=== PATIENT | male | born 1975 | race Caucasian/White ===

== ENCOUNTER 2019-04-09 13:47 | Inpatient (IN) ==
--- NOTE | 2019-04-09 14:44 | PROVIDER DOCUMENTATION ---
HPI-Abdominal Pain/GI Problem - General Chief Complaint: Vomiting Blood Stated Complaint: VOMITING BLOOD Time Seen by Provider: 04/09/19 14:18 Source: patient Allergies/Adverse Reactions: Patient Allergies Allergy/AdvReac Type Severity Reaction Status Date / Time No Known Allergies Allergy Verified 02/07/19 08:21 Home Medications: Home Medication List Medication Instructions Recorded Confirmed Last Taken Type NK [No Home Medications] 04/09/19 04/09/19 Unknown History - History of Present Illness-ABD Nature of Presenting Problems: 43 yr old M, hx of Hep C, cirrhosis, esophageal banding, presents with a three day hx of hematemesis and melena. Pt states these symptoms have occurred before, and each time, he has needed a blood transfusion; most recently about 2-3 wks ago. Pt states he also has scrotal swelling, which he notices occurs whenever his other symptoms occur; he has generalized abdominal pain with some focal tenderness suprapubically. He notes that the dark matter, he noticed in his vomiting and stool started to clear up about two days ago; however, because of what happened the last time, he decided to come in for evaluation. Abdominal Pain Onset Location: reports: suprapubic, generalized abdomen Pain Radiation: reports: no radiation Quality of Pain: reports: cramping, pressure Severity in ED: reports: moderate Onset/Duration: reports: 5 days ago Timing: reports: improving Activities at Onset: reports: none Exposure to sick contacts?: No Modifying Factors: improves with: nothing Associated Symptoms: reports: nausea, vomiting Last BM: 24 hours ago Dark Stools Present?: reports: black Emesis Description: reports: blood-streaked Bruising or Bleeding Gums?: No Similar Symptoms Previously?: Yes Review of Systems - Adult - REVIEW OF SYSTEMS - ADULT Constitutional: reports: no symptoms reported Eyes: reports: no symptoms reported Ears, Nose, Mouth & Throat: reports: no symptoms reported Cardiovascular: reports: no symptoms reported Respiratory: reports: no symptoms reported Gastrointestinal: reports: see HPI Genitourinary: reports: see HPI Musculoskeletal: reports: no symptoms reported Integumentary: reports: no symptoms reported Neurological: reports: no symptoms reported Psychiatric: reports: no symptoms reported Past History - Adult - PAST MEDICAL HISTORY-ADULT Review of Records: reports: Old Records Reviewed, Nursing Assessment Review Major Childhood Illnesses: reports: denies history Cardiovascular: reports: denies history Respiratory: reports: denies history Gastrointestinal: reports: GI bleed, hepatitis, liver disease Musculoskeletal: reports: denies history - PRIOR SURGERIES/PROCEDURES Surgical/Procedure History: denies: recent surgery - FAMILY HISTORY Family History: reviewed, not pertinent - SOCIAL HISTORY Smoking: cigarettes Provider spent 3-5 mins advising pt. on dangers of tobacco.: Discussed manners to quit use, and f/u contacts for add'l counseling. Physical Exam-General - PHYSICAL EXAM-ADULT Initial Vital Signs Reviewed: Yes - CONSTITUTIONAL General Appearance: alert, no apparent distress - EYES Eyes: PERRL/EOMI - HEAD, EARS, NOSE, MOUTH & THROAT HENMT: normocephalic/atraumatic, moist mucous membranes - RESPIRATORY Respiratory: chest non-tender, lungs clear, normal breath sounds - CARDIOVASCULAR Cardiovascular: regular rate, rhythm - GASTROINTESTINAL (ABDOMEN) Abdominal Exam: tenderness (suprapubic) - MUSCULOSKELETAL Extremity: no pedal edema - SKIN Integumentary: warm/dry, pallor - NEUROLOGIC Neurologic: no motor/sensory deficits - PSYCHIATRIC Psych/Mental Status: normal mood/affect, oriented x 3 Progress - PLAN OF CARE/RESULTS Progress/Plan/Lab Results: Vital Signs - 8 hr 04/09/19 14:00 Temperature 98.0 F Pulse Rate 101 H Respiratory Rate 20 Blood Pressure 123/69 O2 Sat by Pulse Oximetry 100 Orders Category Date Time Status US SCROTUM [US] Stat Exams 04/09/19 14:39 Ordered CBC WITH ELECTRONIC DIFF [HEME] Stat Lab 04/09/19 14:30 Results COMPREHENSIVE METABOLIC PANEL [CHEM] Stat Lab 04/09/19 14:30 Received OCCULT BLOOD SCREENING [STOOL] Stat Lab 04/09/19 14:37 Ordered URINALYSIS W/POSS RFLX CULT [URINALYSIS] Stat Lab 04/09/19 14:18 Uncollected Result Diagrams: 04/09/19 14:30 04/09/19 14:30 - REASSESSMENT Reassessment #1 Time Reassessed: 14:55 (H/H 4.8, 17.7, an acute drop from his last recorded H/H in February. Spoke with hospitalist; pt will be accepted for further management.) - CONSULTS/PCP/HOSPITALIST Notification #1 *Consult/PCP/Hospitalist*: Tamara for Dr. Rondon Time Discussed: 14:55 Consult Disposition: Admit Departure - Departure Date of Disposition Decision: 04/09/19 Time of Disposition Decision: 15:02 DIAGNOSIS: Anemia Qualifiers: Anemia type: other cause Other causes of anemia: acute posthemorrhagic Qualified Code(s): D62 - Acute posthemorrhagic anemia Disposition: ADMITTED INPATIENT 09 Certified Medical Emergency: Emergent Condition: Fair Referrals and Follow-Ups: None,PCP [Primary Care Provider] - Discharge Education: Steps to Quit Smoking, [id number] - Critical Care Note This patient required my direct & personal management of CC.: Yes Total Time (mins): 45 Critical Care Statement: This patient required my direct personal management to treat or rule out processes, the absence of which, could potentiallly result in sudden, clinically significant life or limb threatening deterioration. Attestation - Physician/ MORGAN Attestation Patient care was provided by Advanced Practice Provider:: No The physician spent face to face time with patient:: Yes Advanced Practice Provider documentation review:: Supervising physician onsite and consulted in the evaluation and care of this patient. The physician did have a face to face encounter with the patient.
[2019-04-09 14:51] LABS: BASO# 0.01 X1000 (0.0-0.2); BASO% 0.2 % (0.0-0.8); EOS# 0.08 X1000 (0.0-0.7); EOS% 1.8 % (0.0-10.0); HEMATOCRIT 17.7 % (42.0-52.0); LYMPH# 1.63 X1000 (1.2-3.4); LYMPH% 36.1 % (20.5-51.1); MCH 22.7 PG (27-31); MCHC 27.1 g/dL (33-37); MCV 83.9 FL (81-99); MONO# 0.52 X1000 (0.11-0.59); MONO% 11.5 % (1.7-9.3); MPV 10.8 FL (7.4-10.4); NEUT# 2.27 X1000 (1.4-6.5); NEUT% 50.4 % (42.2-75.2); PLT 100 X1000 (130-400); RBC 2.11 XMIL (4.7-6.1); RDW 16.9 % (11.5-14.5); WBC 4.51 X1000 (4.8-10.8)
[2019-04-09 14:52] LABS: HEMOGLOBIN 4.8 g/dL (14.0-18.0)
[2019-04-09] MEDS ORDERED: NS 500 ML IV ONE (14:56)
[2019-04-09 15:00] LABS: AGAP 10; ALB/GLOB RATIO 1.4; ALBUMIN 3.2 g/dL (3.5-5.0); ALKALINE PHOSPHATASE 85 U/L (32-122); BUN 7 mg/dL (8-22); CALCIUM 8.3 mg/dL (8.8-10.2); CHLORIDE 104 mmol/L (98-107); COSMO 270; CREATININE 0.8 mg/dL (0.7-1.2); ESTIMATED GFR > 60; GLUCOSE 136 mg/dL (70-104); GOT 24 U/L (10-34); GPT 23 U/L (10-44); POTASSIUM 4.1 mmol/L (3.5-5.1); SODIUM 135 mmol/L (136-145); TCO2 21 mmol/L (25-35); TOTAL BILIRUBIN 0.73 mg/dL (0.20-1.00); TOTAL PROTEIN 5.5 g/dL (6.3-8.3)
[2019-04-09] MEDS ORDERED: LASIX IV SCH ×2 (15:00→22:30)
[2019-04-09] MEDS ORDERED: MORPHINE IV ONE (15:01)
[2019-04-09 15:15] LABS: URINE SOURCE CLEAN CATCH
[2019-04-09 15:22] LABS: BILIRUBIN URINE NEGATIVE (NEGATIVE); BLOOD URINE NEGATIVE (NEGATIVE); COLOR YELLOW; GLUCOSE URINE NEGATIVE (NEGATIVE); KETONE URINE NEGATIVE (NEGATIVE); LEUKOCYTES URINE NEGATIVE (NEGATIVE); NITRITE URINE NEGATIVE (NEGATIVE); PH URINE 6.5; PROTEIN URINE NEGATIVE (NEGATIVE); SP GRAVITY URINE 1.014; TURBIDITY URINE CLEAR (CLEAR); UROBILINOGEN URINE NORMAL (NORMAL)
[2019-04-09 15:37] LABS: UR EPITHELIAL CELLS <10 /HPF (<10); URINE BACTERIA NEGATIVE /HPF; URINE RBC <10 /HPF (<10); URINE WBC <10 /HPF (<10)
[2019-04-09 15:46] LABS: URINE CASTS NONE SEEN; URINE CRYSTALS NONE SEEN; URINE YEAST NONE SEEN
[2019-04-09 15:53] LABS: FREE T4 0.86 ng/dL (0.93-1.70)
--- NOTE | 2019-04-09 16:00 | Diag Imaging Result Doc PS360 ---
EXAM: US SCROTUM - 04/09/2019 HISTORY: scrotal swelling and pain TECHNIQUE: Ultrasound scrotum COMPARISON: 03/08/2019 FINDINGS: The right testicle measures 3.3 x 2.4 x 2.5 cm in size. The left testicle measures 4.2 x 2.2 x 2.4 cm in size. The bilateral testicles demonstrate blood flow signal on Doppler images. The bilateral testicles demonstrate homogeneous echotexture. There is a large right hydrocele similar to prior. There is a small epididymal cysts on the right similar to prior. There is scrotal skin thickening which is most prominent on the right. There is a 0.7 x 0.4 cm cystic structure posterior to the left testicle which appears essentially stable. IMPRESSION: Large hydrocele on the right. Skin thickening, most prominent on the right. No evidence of torsion. Electronically signed by Lauro Plunkett 04/09/2019 3:58 PM
--- NOTE | 2019-04-09 16:52 | HISTORY AND PHYSICAL ---
HISTORY OF PRESENT ILLNESS: Mr. Gibson is a 43-year-old who reports that he last year came into [facility]. He was very weak, found that he had significant anemia, upper GI bleed and found esophageal varices. He said that he has had 2 procedures and a total of 8 bands placed on the esophageal varices, so apparently diagnosed with cirrhosis. He did report that his mother has been diagnosed recently with cirrhosis and she has never drank. He used to drink pretty heavy. He quit when he found out that he had cirrhosis of the liver. He smokes about a pack every 4 days. Denies any other known real medical problems. No diabetes that he is aware of. No high blood pressure, high cholesterol. No kidney troubles. The only back surgery he has had is 2 back surgeries. SOCIAL HISTORY: He used to work construction. Positive for tobacco and pretty heavy alcohol, drinking until a year ago. FAMILY HISTORY: Mother recently diagnosed with cirrhosis. He does not know any other significant medical problems. REVIEW OF SYSTEMS: General: No weight gain or loss. No fever or chills. HEENT: Unremarkable. Respiratory: No increased work of breathing or dyspnea. Cardiovascular: No chest pain or tachy palpitation. GI/: He has notice some bright red blood when he throws up and his stools have been dark in the last couple weeks. Musculoskeletal/Neurologic: No focal complaints Endocrinologic/hemologic: No significant history. PHYSICAL EXAMINATION: VITAL SIGNS: Temperature 98.3 degrees, pulse 88, respirations 19, blood pressure 109/71. GENERAL: Awake, alert, oriented x3. HEENT: Pupils are equal and round. Conjunctiva is pink. Sclerae is clear. Oral and nasal mucosa without any lesions. NECK: CVP less than 6 cm. Supple. No thyromegaly. LYMPHATIC: No cervical, supraclavicular, or axillary adenopathy. LUNGS: Clear in all lung somers. CARDIOVASCULAR: Regular rhythm and rate without murmur or S3. ABDOMEN: Soft, nondistended, nontender. EXTREMITIES: Without clubbing, cyanosis, or edema. SKIN: Without any rashes. LAB: White count 4,510, hematocrit is 17, hemoglobin 4.8, MCV is 83, platelet count 100,000. Sodium 135, potassium 4.1, chloride 104, bicarb 21, BUN 7, creatinine 0.8, blood sugar 136, calcium 8.3, AST 24, ALT 23, alkaline phosphatase 85. B12 was 405, folate is 11.1. TSH is 4.51, T4 is 0.86. Urinalysis unremarkable. He did have some scrotal swelling. He got a scrotum ultrasound, large hydrocele on the right, skin thickening most prominent right. No evidence of torsion. ASSESSMENT AND PLAN: Upper gastrointestinal bleed, history apparently of cirrhosis and esophageal varices, portal hypertension. We will consult GI and I think Dr. Soni will follow. We need to give him some blood. Give him 2 units of packed red blood cells now. His hemoglobin was 4.7, hematocrit 17. He has quit alcohol by his confession, so should not have to worry about alcohol withdrawals, if that is accurate. Note that his B12 and folate look okay. T4 and TSH unremarkable. He has a mild elevation of TSH, but T4 is 0.86. He takes no home medications. cc: Shalom Rondon MD
[2019-04-09] MEDS ORDERED: ZOFRAN IV PRN (16:58)
[2019-04-09] MEDS ORDERED: SODIUM CHLORIDE 0.9% INJ SCH (16:58)
[2019-04-09] MEDS ORDERED: TYLENOL PO PRN (16:58)
[2019-04-09] MEDS ORDERED: ULTRAM PO PRN (18:43)
[2019-04-09] MEDS: PROTONIX IV SCH (22:24)
[2019-04-10 07:44] LABS: BASO# 0.01 X1000 (0.0-0.2); BASO% 0.2 % (0.0-0.8); EOS# 0.07 X1000 (0.0-0.7); EOS% 1.7 % (0.0-10.0); HEMATOCRIT 24.2 % (42.0-52.0); HEMOGLOBIN 7.1 g/dL (14.0-18.0); LYMPH# 2.03 X1000 (1.2-3.4); LYMPH% 48.2 % (20.5-51.1); MCH 24.7 PG (27-31); MCHC 29.3 g/dL (33-37); MONO# 0.65 X1000 (0.11-0.59); MONO% 15.4 % (1.7-9.3); MPV 11.6 FL (7.4-10.4); NEUT# 1.45 X1000 (1.4-6.5); NEUT% 34.5 % (42.2-75.2); PLT 95 X1000 (130-400); RBC 2.88 XMIL (4.7-6.1); RDW 15.7 % (11.5-14.5); WBC 4.21 X1000 (4.8-10.8)
[2019-04-10 07:49] LABS: AGAP 9; BUN 8 mg/dL (8-22); CALCIUM 8.5 mg/dL (8.8-10.2); CHLORIDE 104 mmol/L (98-107); COSMO 274; CREATININE 0.9 mg/dL (0.7-1.2); ESTIMATED GFR > 60; GLUCOSE 97 mg/dL (70-104); POTASSIUM 4.4 mmol/L (3.5-5.1); SODIUM 138 mmol/L (136-145); TCO2 25 mmol/L (25-35)
[2019-04-10] MEDS: PROTONIX IV SCH (09:00)
--- NOTE | 2019-04-10 09:39 | PROGRESS NOTE ---
DATE: 04/10/2019 SUBJECTIVE: Mr. Gibson feels better this morning. He has not had any more vomiting or hematemesis. No abdominal pain. OBJECTIVE: Temperature 98.4, pulse 72, respirations 12, blood pressure 104/56. Pupils are equal and round. Lungs are clear in all lung somers. Cardiovascular: Regular rate and rhythm without murmur or S3. Abdomen: Soft, nondistended and nontender. Urine output is 2300 mL. ASSESSMENT AND PLAN: 1. Upper gastrointestinal bleeding, history of esophageal varices, history of portal hypertension, alcoholic cirrhosis by history. We gave him 2 units of packed red blood cells. Hematocrit up to 24, hemoglobin is 7.1. GI to follow and determine whether he needs another EGD. He reported he has had 2 procedure and a total of 8 bands on his esophageal varices. 2. Nutrition looks good. Renal function looks good as well. I did not see elevation of transaminases. His thyroid is within acceptable limits as well. B12 is 400, folate 11. 3. I reviewed his orders. I do not see any changes at this point. He gets tramadol p.r.n. for pain, Protonix 40 mg IV q.12. cc: Shalom Rondon MD
[2019-04-10] MEDS ORDERED: DIPRIVAN 1% ONE (09:59)
[2019-04-10] MEDS ORDERED: FENTANYL ONE (09:59)
--- NOTE | 2019-04-10 10:06 | ENDOSCOPY OPERATIVE NOTE ---
[facility] ENDOSCOPY OPERATIVE NOTE , EGD PROCEDURE REPORT EXAM DATE: 04/10/2019 PATIENT NAME: Felicitas Gibson MR#: [id number] BIRTHDATE: 1975 ATTENDING: Jareth Soni MD STATUS: inpatient SENIOR CLINICAL CONSULTANT: INDICATIONS: The patient is a 43 yr old male here for an EGD due to hematemesis, melena, and h/o hcv cirrhosis s/p variceal bleed and banding in past. PROCEDURE PERFORMED: EGD w/ biopsy MEDICATIONS: Per Anesthesia ESTIMATED BLOOD LOSS: None CONSENT: The patient understands the risks and benefits of the procedure and understands that these r isks include, but are not limited to: sedation, allergic reaction, infection, perforation and/or bleeding. Alternative means of evaluation and treatment include, among others: physical exam, x-rays, and/or surgical intervention. The patient elects to proceed with this endoscopic procedure. DESCRIPTION OF PROCEDURE: During pre-op preparation period all mechanical and medical equipment was c hecked for proper function. Hand hygiene and appropriate measures for infection prevention was taken. After the risks, benefits and alternatives of the procedure were thoroughly explained, Informed consent was verified, confirmed and timeout was successfully executed by the treatment team. The patient was anesthetized with topical anesthesia and the [id number] ([id number]) endoscope was introduced through the mouth and advanced to the second portion of the duoden um. Retroflexion was performed in the stomach and revealed no abnormalities. The gastroscope was then slowly withdraw n and removed. The patient's toleration of the procedure was excellent. ESOPHAGUS: There were 4 columns of small (Grade I) varices in the lower third of the esophagus. Ther e was evidence of prior scarring. Banding was not attempted given degree of scarring from prior banding. Esophagitis was found in the distal esophagus. Esophagitis was LA Class A: One or more mucosal breaks < 5 mm in maximal length. STOMACH: Multiple non-bleeding, shallow and clean-based ulcers ranging between 3-7mm in size were fou nd in the gastric antrum. Mild gastritis (inflammation) was found in the gastric antrum. A biopsy was performed usin g cold forceps. Mild portal hypertensive gastropathy was found. DUODENUM: Multiple ranging between 5-9mm in size non-bleeding, irregular shaped and clean-based ulcer s were found in the duodenal bulb and 2nd part duodenum. Mild duodenal inflammation was found in the duodenal bulb. ADVERSE EVENTS: There were no complications. IMPRESSIONS: 1. There were 4 columns of small esophageal varices and varices in the lower third of the esophagus 2. Esophagitis in the distal esophagus 3. Multiple ulcers ranging between 3-7mm in size were found in the gastric antrum 4. Gastritis (inflammation) was found in the gastric antrum; biopsy was performed 5. Portal hypertensive gastropathy was found 6. Multiple ranging between 5-9mm in size ulcers were found in the duodenal bulb and 2nd part duoden um 7. Duodenal inflammation was found RECOMMENDATIONS: 1. Await biopsy results 2. Pantoprazole 40mg PO BID for 3 months 3. Start nadolol 20mg PO once daily, titrate for HR 55-60 4. Avoid NSAIDs/aspirin 5. Repeat EGD in 3 months REPEAT EXAM: Return in 3 months for EGD. Jareth Soni MD eSigned: Jareth Soni MD 04/10/2019 10:05 AM CC: CPT CODES: 25125 Upper gastrointestinal endoscopy including esophagus, stomach, and either the du odenum and/or jejunum as appropriate; with biopsy, single or multiple ICD CODES: 578.0 Hematemesis 578.1 Blood in stool The ICD and CPT codes recommended by this software are interpretations from the data that the [facility] staff has captured with the software. The verification of the translation of this report to the ICD and CPT co darryl and modifiers is the sole responsibility of the health care institution and practicing physician where this report was generated. [employer] will not be held responsible for the validity of the ICD and CPT codes i ncluded on this report. [employer] assumes no liability for data contained or not contained herein. CPT is a registered tra demark of the [employer]. PATIENT NAME: Felicitas Gibson MR#: [id number]
--- NOTE | 2019-04-10 10:32 | GASTROENTEROLOGY CONSULTATION ---
DATE: 04/10/2019 REASON FOR CONSULTATION: GI bleed, symptomatic anemia. HISTORY OF PRESENT ILLNESS: Mr. Gibson is a 43-year-old male who came in yesterday evening with complaints of throwing up blood and noticing dark, tarry stools. He mentioned that this has been going on for the last 3 to 4 days onwards, and it cleared up for sometimes and once again it has started. The patient had nausea and vomiting, and he vomited coffee-ground emesis. The patient saw Dr. Monroe on 05/2018 in [facility] where he did banding of almost 8 varices in less than 6 months. The patient complained of right abdominal pain. He has denied any fever or chills but said that he did have shortness of breath when he was trying to get up and stand. The patient has a history of alcoholic cirrhosis and hepatitis C. He said he quit when he found out he had cirrhosis of the liver. He smokes about a pack every 4 to 5 days. The patient's hemoglobin on admission was 4.8, hematocrit was 17.7. The patient has so far received 2 units of blood. His hemoglobin today is 7.1, and hematocrit is 24.1. The patient has denied noticing any dark tarry stools today. He said last night, his stools were clear, and he has not had any nausea or vomiting. PAST MEDICAL HISTORY: Psoriasis, alcoholic liver cirrhosis, hepatitis C, back pain, history of alcohol abuse, current smoker. PAST SURGICAL HISTORY: Back surgery and binding of the varices. ALLERGIES: No known drug allergies. SOCIAL HISTORY: The patient is . He has one kid. Past alcoholic. He smokes a pack of cigarettes every 4 to 5 days. He has denied any illicit drug use. FAMILY HISTORY: Positive for cirrhosis. Mother was diagnosed with cirrhosis. MEDICATIONS: The patient does not take any medications at home. REVIEW OF SYSTEMS: As per HPI; otherwise, 12-point review of systems is negative. PHYSICAL EXAMINATION: Vital signs: Temperature 98.4, pulse 72, respirations 12, blood pressure 104/56, oxygen saturation 95% on room air. The patient's weight is 196 pounds, BMI is 27.3 kg per m sq. General: He is alert and oriented x3, answering questions appropriately and in no acute distress. HEENT: Pale conjunctivae. Mild icterus. PERRL. Neck: Supple. Lungs: Clear to auscultation in the anterior somers. Cardiovascular: Regular rate and rhythm. Abdomen: Tender in the right quadrant. Nondistended. Soft. Active bowel sounds heard in all 4 quadrants. Extremities: No clubbing. No cyanosis. No edema. Pulses 2+ and present bilaterally. Neurologic: He is alert and oriented x3. Nonfocal. Cranial nerves II through XII grossly intact. DIAGNOSTIC DATA: WBC is 4.2, RBC is 2.88, hemoglobin 7.1, hematocrit 24.2, platelet count is 95,000. Sodium 138, potassium 4.4, chloride 104, carbon dioxide 25, anion gap 9, BUN is 8, creatinine 0.9, glucose 97, calcium 8.5, total bilirubin is 0.73, AST is 24, ALT is 23, alkaline phosphatase 85, albumin 3.2. Vitamin B12 was 405, folate is 11.1. TSH is 4.51, and free T4 is 0.86. An ultrasound of the scrotum showed that he has large hydrocele on the right, skin thickening most prominent on the right, no evidence of torsion. His urinalysis was negative. The patient's stool for occult blood was positive. IMPRESSION AND PLAN: GI Bleed Coffee ground emesis Nausea and vomiting Abdominal Pain Melena Anemia Hepatitis C Alcoholic Liver Cirrhosis History of Psoriasis PLAN: Mr. Gibson is a 43-year-old male with the history of alcoholic cirrhosis and hepatitis C, GI has been consulted for his GI bleed and anemia. The patient is currently on GI prophylaxis Protonix 40 mg for his GI bleed. He is on antiemetic Zofran 4 mg for his nausea and vomiting. The patient's H & H on admission was 4.8 & 17.7. After he received 2 units of blood, it is 7.1 and 24.2. An EGD was done today and findings were, 4 columns of small esophageal varices. Esophagitis in the distal esophagus. Multiple ulcers in the gastric antrum ranging from 3-7 mm in size, gastritis in the gastric antrum, biopsy was performed. Portal hypertensive gastropathy, ulcers ranging form 5-9 mm in the duodenal bulb, second part of the duodenum and duodenal inflammation. Awaiting the results of the biopsy. Patient needs to continue Protonix 40 mg BID for 3 months. Patient has been started on nadolol 20 mg PO once daily, titrate for HR 55-60. Patient has been advised to avoid NSAIDS and aspirin and he needs a repeat EGD in 3 months. We will follow him up as an outpatient in 4-6 weeks and EGD in 3 months. This plan was discussed with Dr. Soni. Thank you for your consult. Please call us for any further questions and concerns. Dictated by JUDIT Rodriguez for Jareth Soni MD Physician Attestation I have seen and examined the patient. I have discussed and reviewed the note by Jyotsna SPAIN and agree with findings and plan as documented. MTDD
[2019-04-10] MEDS ORDERED: PROTONIX PO ONE (11:15)
[2019-04-10] MEDS: CORGARD PO SCH (13:43)
[2019-04-10] MEDS: PERIDEX MT SCH (20:02)
[2019-04-10] MEDS: PROTONIX PO SCH (20:02)
[2019-04-11 07:39] VITALS: BP 95/50
--- NOTE | 2019-04-11 09:11 | DISCHARGE SUMMARY ---
ADMISSION DATE: 04/09/2019 DISCHARGE DATE: 04/11/2019 HOSPITAL COURSE: This is a 43-year-old who reports that he came into [facility]. He was very weak, found significant anemia. Upper GI found esophageal varices. Today, had 2 procedures, a total of 8 bands placed, esophageal varices, and so at that point he quit drinking. He comes in with hematemesis and epigastric discomfort and dyspepsia. He had a GI consult with Dr. Soni and underwent endoscopy. Had multiple nonbleeding shallow clean-based ulcers ranging from 3 to 7 mm in size found in the gastric antrum. Mild gastritis also found in the gastric antrum. Biopsies performed. He had 4 columns of small grade 1 varices in the lower third of the esophagus. There was no evidence of prior scarring. Banding was not attempted given degree of scarring from prior banding. Esophagitis was found in the distal esophagus. Esophagitis LA class A, one or more acute mucosal breaks less than 5 mm in length. Duodenum: Multiple ranging between 5 to 9 cm, nonbleeding, irregular-shaped, clean-based ulcers found in duodenal bulb and 2nd part of duodenum. So, we will keep him on high-dose proton pump inhibitor. He is really wanting to go home. We will keep him on Corgard 20 mg a day, Protonix 40 mg twice a day, and I will let him have a prescription for some Ultram. We will also put him on Carafate 1 g 4 times a day for 4 weeks. To follow up with his primary care and GI. cc: Shalom Rondon MD
[2019-04-11] MEDS: PERIDEX MT SCH (09:18)
[2019-04-11] MEDS: CORGARD PO SCH (09:18)
[2019-04-11] MEDS: PROTONIX PO SCH (09:19)
== END 2019-04-11 10:11 | disposition home or self-care (01) | DRG 433 ==
LOC: ED 13:47 → 4N 15:31
PROVIDERS: ATTEND Emergency Medicine